=== PATIENT | female | born 1985 ===

== ENCOUNTER 2017-09-08 09:35 | Inpatient (IN) | payer SELFPAY ==
[2017-09-08 11:01] VITALS: BMI 27.6
[2017-09-08] MEDS ORDERED: Betamethasone Soluspan 30 mg/5mL Inj Susp IM ONE (11:14)
[2017-09-08] MEDS: Lactated Ringer's 1,000 ML IV SCH ×2 (11:15→22:23)
[2017-09-08 11:34] LABS: BASO % 0.4 % (0.0-2.0); EOS # 0.1 K/uL (0.0-0.7); EOS % 0.9 % (0.0-4.0); HEMOGLOBIN 14.1 g/dL (12.0-16.0); LYMPH % 20.6 % (20.0-40.0); MEAN CELL VOLUME 87.7 fl (81.0-99.0); MEAN CORPUSCULAR HEMOGLOBIN 29.5 pg (27.0-31.0); MEAN CORPUSCULAR HGB CONC 33.7 g/dL (33.0-37.0); MEAN PLATELET VOLUME 10.6 fl (7.2-11.7); MONO # 0.9 K/uL (0.0-0.8); MONO % 9.1 % (0.0-10.0); NEUT # 6.6 K/uL (1.8-7.0); NRBC % 0.1 % (0.0-0.0); RBC 4.77 Mil/uL (3.80-5.20); RED CELL DISTRIBUTION WIDTH 13.6 % (11.5-14.5); WHITE BLOOD COUNT 9.5 K/uL (4.8-10.8)
[2017-09-08] MEDS ORDERED: Magnesium Sulfate 4 gm/100 ml 4 GM/100 ML BAG IV ONE (12:37)
[2017-09-08] MEDS ORDERED: Magnesium Sul 40GM/1L SW 40 GM/1,000 ML ML IV ONE ×2 (12:37→13:11)
--- NOTE | 2017-09-08 12:53 | US ---
PROCEDURE: biophysical profile HISTORY: growth COMPARISON: None. TECHNIQUE: Ultrasound of the pelvis performed transabdominally FINDINGS: Single viable intrauterine gestation. Placenta posterior. Cephalic presentation. Cervix long and closed. heart rate 138 beats per minute. BPD: 8.3 centimeter compatible with estimated gestational age of 33 weeks, 3 days. HC: 29.8 centimeter compatible with estimated gestational age of 33 weeks, 0 days. HC: 28.0 centimeter compatible with estimated gestational age of 32 weeks, 0 days. FL: 6.5 centimeter compatible with estimated gestational age of 33 weeks, 2 days. Estimated gestational age (average ultrasound age): 33 weeks, 0 days. Estimated delivery date: 10/27/2017. weight: 4 pounds, 7 ounces (2013 grams) DONATO: 15.1 centimeter breathing movements: Score 2 movements: Score 2 tones: Score 2 Amniotic Fluid: Score 2 Total score: 8 IMPRESSION: Findings as above.
--- NOTE | 2017-09-08 17:26 | OBADHP ---
Datetime: 09/08/2017 15:21 Admit Comment, IP Provider: Patient is a @ 33.2 wks, presents with vaginal bleeding and cont ractions. Patient denies leaking, +FM, history of 34 week and 35 week vaginal delivery. Patient has b een receiving 17-OH progesterone weekly, otherwise no antepartum, no medical, no surgical issues VE=/-3 [id number] mod shun, +accels, no decels TOCO = ctxning q 3-5 mins A/P 1. Patient admitted for labor. IVF, CBC, type and screen 2. Patient given Betamethasone and started MgSO4 for tocolysis. Discussed case with Dr. Peralta 3. Patient rechecked and has unchanged exam. Growth U/S confirms vertex presentation and dates. 4. Will continue to watch closely Pelvic Type - PN: Adequate Extremities - PN: Normal Abdomen - PN: Normal Back - PN: Normal Breast - PN: Normal Lungs - PN: Normal Heart - PN: Normal Thyroid - PN: Normal Neurologic - PN: Normal HEENT - PN: Normal General - PN: Normal Presentation-Admit: Vertex FHR - Baseline A Provider: 125 Contraction Comments Provider: q 3-5 mins Vital Signs Provider: Reviewed; Within Normal Limits IP Chief Complaint: Uterine contractions NICHD Variability Prov Fetus A: Moderate 6-25bpm NICHD Accel Fetus A IP Provider: [id number] Dilatation, Provider: 1 Effacement, Provider: 50 Station, Provider: -3 Genitourinary Exam: Normal DTRs - PN: Normal EGA AdmitDate IP: 33.2 IP Adm Impression: , intrauterine IP Admit Plan: Admit to unit
[2017-09-09] MEDS: Lactated Ringer's 1,000 ML IV SCH (09:08)
[2017-09-09] MEDS ORDERED: Betamethasone Soluspan 30 mg/5mL Inj Susp IM ONE (11:00)
[2017-09-09 12:17] LABS: SQUAMOUS EPITHIAL 1 /hpf (0-5); URINE BILIRUBIN NEGATIVE (NEGATIVE); URINE BLOOD SMALL (NEGATIVE); URINE CLARITY CLEAR (Clear); URINE COLOR YELLOW (YELLOW); URINE GLUCOSE (UA) NEG (Normal); URINE LEUKOCYTE ESTERASE NEG Leu/uL (Negative); URINE NITRATE NEGATIVE (NEGATIVE); URINE PROTEIN NEGATIVE (NEGATIVE); URINE UROBILINOGEN 0.2-1.0 mg/dL (0.2-1.0)
--- NOTE | 2017-09-09 12:21 | OBPN ---
Datetime: 09/09/2017 11:30 IP Progress Plan: Continue present management FHR - Baseline A Provider: 130 IP Progress Note Comment: Pt seen and examined at bedside. Denies [place], cp, sob, epigastric pain, numb ness of extremities. Pt ambulating well, tolerating PO diet. Reflexes 2+; Mg levels: therapeutic -2nd beta injection on L gluteal -UA stat -Recommended patient increase water intake to 8 cups a day with less juice -Pt to follow up with pnc on Monday09/12/2017 -UA: clear; discharge home with PTL precautions case dw Dr. Jasper Mendez MD PGY1 OB attending addendum: Patient seen and examined by me with Dr. Mendez. 3 with the above assessment and plan. U/A neg P: Hydration with water reinforced to patient Follow-up this week in clinic as scheduled on Monday labor precautions and pelvic rest Vital Signs Provider: Reviewed; Within Normal Limits NICHD Accel Fetus A IP Provider: [id number] FHR Category Provider Fetus A: Category I NICHD Variability Prov Fetus A: Moderate 6-25bpm NICHD Decel Fetus A IP Provider: None Datetime: 09/08/2017 15:21 Contraction Comments Provider: q 3-5 mins Presentation-Admit: Vertex Dilatation, Provider: 1 Effacement, Provider: 50 Station, Provider: -3
--- NOTE | 2017-09-09 12:24 | OBPN ---
Datetime: 09/09/2017 07:00 IP Progress Note Comment: Pt seen and examined at bedside, resting comfortably. She denies SOB, PORRAS, epigastric pain, limitation of movement in extremities/digits. urine I_O wnl; vitals stable. Reflexe s in all extremities 2++ case dw Dr. Jasper Mendez MD PGY1
[2017-09-09 17:41] VITALS: BP 97/58; PULSE 90; RESP 18; TEMP 98.3; O2SAT 98
== END 2017-09-09 13:00 | disposition home or self-care (01) | DRG 778 ==
LOC: H.EROB2 09:35 → H.L&D 10:31 → H.EROB2 12:44 → H.L&D 12:45
PROVIDERS: ADMIT Obstetrics & Gynecology; ATTEND Obstetrics & Gynecology
PROC: 4A1HXCZ Monitoring of Products of Conception, Cardiac Rate, External Approach (ICD-10-PCS; principal; 2017-09-08)
DX: O60.03 Preterm labor without delivery, third trimester (principal); O46.93 Antepartum hemorrhage, unspecified, third trimester; Z3A.33 33 weeks gestation of pregnancy

== ENCOUNTER 2017-09-11 20:56 | Inpatient (IN) | payer MEDICAID ==
[2017-09-11] MEDS ORDERED: Lactated Ringer's 1,000 ML IV SCH ×2 (21:50→23:15)
[2017-09-11 23:02] VITALS: BMI 27.4
[2017-09-11] MEDS ORDERED: Penicillin G Potassium 5 MU in Sodium Chloride 0.9% 50 ML IVPB ONE (23:04)
[2017-09-11] MEDS ORDERED: Nalbuphine 20 mg/ml Inj (1 ml) IVP PRN (23:13)
[2017-09-11 23:20] LABS: BASO % 0.3 % (0.0-2.0); EOS # 0.1 K/uL (0.0-0.7); EOS % 0.4 % (0.0-4.0); HEMOGLOBIN 13.7 g/dL (12.0-16.0); LYMPH # 2.2 K/uL (1.0-4.3); LYMPH % 19.2 % (20.0-40.0); MEAN CELL VOLUME 87.6 fl (81.0-99.0); MEAN CORPUSCULAR HGB CONC 33.1 g/dL (33.0-37.0); MEAN PLATELET VOLUME 10.5 fl (7.2-11.7); MONO % 8.9 % (0.0-10.0); NEUT # 8.3 K/uL (1.8-7.0); NEUT % 71.2 % (50.0-75.0); NRBC % 0.1 % (0.0-0.0); RBC 4.72 Mil/uL (3.80-5.20); RED CELL DISTRIBUTION WIDTH 13.8 % (11.5-14.5); WHITE BLOOD COUNT 11.6 K/uL (4.8-10.8)
[2017-09-12] MEDS ORDERED: Lidocaine 1% Inj (20ml) ONE (00:51)
[2017-09-12] MEDS ORDERED: Benzocaine/Menthol SPRAY TOP PRN ×2 (00:58→02:56)
[2017-09-12] MEDS ORDERED: Oxycodone/Acetaminophen 5/325 mg Tab PO PRN ×2 (00:58→02:56)
[2017-09-12] MEDS ORDERED: Oxytocin 30 UNITS in Sodium Chloride 0.9% 500 ML IV ONE (01:00)
--- NOTE | 2017-09-12 01:21 | OBHP ---
Datetime: 09/11/2017 21:38 IP Adm Impression: , intrauterine IP Admit Plan: Admit to unit; Initiate labor protocol Admit Comment, IP Provider: Patient is a IUP 33.5 wks, presents with vaginal bleeding and pa inful contractions since this afternoon. Patient denies leaking, +FM, PObH of 34 week and 35 week vag inal delivery. Pt was seen last Monday with ctx and vb and receivied Mg bolus/infusion and [place]. Patient has been receivied [place] weekly, no , no medical, no surgical problems. VE: 1-2/50/-3 FHR:150/ mod shun, +accels, no decels TOCO = ctxning q 6-7 mins A/P: Patient IUP 33.5 wks, labor IV fluids. Observation. Reeval. Case discussed with Dr Cordova. Kyung PGY 1 Reeval 21:00 Patient ctxing e/3 min VE: /-2 Plan: Admit to unit Initiate PT labor protocol Penicilin IV Continue /maternal monitoring Monitor labor progress. Kyung PGY 1. Pt seen and examined with the resident and I agree with the above. Pelvic Type - PN: Adequate Extremities - PN: Normal Abdomen - PN: Normal Back - PN: Not Done Breast - PN: Not Done Lungs - PN: Normal Heart - PN: Normal Thyroid - PN: Normal Neurologic - PN: Normal HEENT - PN: Normal General - PN: Normal FHR - Baseline A Provider: 150 Membranes, Provider: Bulging Contraction Comments Provider: q 6-7 min EGA AdmitDate IP: 33.5 Vital Signs Provider: Reviewed; Within Normal Limits IP Chief Complaint: Uterine contractions; Vaginal bleeding NICHD Variability Prov Fetus A: Moderate 6-25bpm NICHD Accel Fetus A IP Provider: [id number] FHR Category Provider Fetus A: Category I NICHD Decel Fetus A IP Provider: None Dilatation, Provider: 1-2 Effacement, Provider: 50 Station, Provider: -3 Genitourinary Exam: Not Done DTRs - PN: Not Done Datetime: 09/08/2017 15:21 Presentation-Admit: Vertex
[2017-09-13 07:00] LABS: BASO # 0.1 K/uL (0.0-0.2); BASO % 0.7 % (0.0-2.0); EOS # 0.2 K/uL (0.0-0.7); EOS % 1.5 % (0.0-4.0); HEMOGLOBIN 13.4 g/dL (12.0-16.0); LYMPH # 3.4 K/uL (1.0-4.3); LYMPH % 28.2 % (20.0-40.0); MEAN CELL VOLUME 87.2 fl (81.0-99.0); MEAN CORPUSCULAR HEMOGLOBIN 28.9 pg (27.0-31.0); MEAN CORPUSCULAR HGB CONC 33.2 g/dL (33.0-37.0); MEAN PLATELET VOLUME 10.1 fl (7.2-11.7); MONO # 0.8 K/uL (0.0-0.8); MONO % 6.8 % (0.0-10.0); NEUT # 7.5 K/uL (1.8-7.0); NEUT % 62.8 % (50.0-75.0); NRBC % 0.2 % (0.0-0.0); RBC 4.65 Mil/uL (3.80-5.20); RED CELL DISTRIBUTION WIDTH 13.9 % (11.5-14.5); WHITE BLOOD COUNT 11.9 K/uL (4.8-10.8)
--- NOTE | 2017-09-13 11:11 | OBPPN ---
Datetime: 09/13/2017 06:18 PP Pain Prov: Within normal limits PP Nausea Prov: Denies PP Flatus Prov: Yes PP BM Prov: Yes PP Breasts Prov: Not Done PP Heart Prov: Normal PP Lungs Prov: Normal PP Abdomen/Uterus Prov: Normal PP Lochia Prov: Normal PP Vulva/Perineum Prov: Not Done PP CVA Tenderness Prov: Not Done PP Extremities Prov: Normal PP C/S Incision Prov: Not Applicable PP Progress Prov: Normal PP Impression Prov: Normal progression PP Plan Prov: Continue present management PP Progress Note Prov: S: 31 yo s/p NVD. Pt. is seen and examined at bedside this morning. N o overnight events. Pt reports mild abdominal pain, well controlled with pain meds. Pt is ambulating without any difficulties. Breast/bottle feeding baby. Tolerating PO diet. Lochia is similar to light menses in volume. Voiding freely, + BM and passing gas per rectum. Denies fever/chills, diarrhea, na usea/vomiting, chest pain, dyspnea, and dizziness. VS: stable Gen: NAD Cardio: + s1s2, no m/r/g Resp: clear breath sounds b/l Abdomen: BS+, NT, Uterus is firm and at the level of the umbilicus. Ext: No edema, calves nontender Neuro/Psych: AAOx3, preserved affect and mood. A/P: 31 yo s/p NVD. Pt remains afebrile, tolerating pain with medication, doing well on PP D 1. OOB with caution. SCDs for DVT prophylaxis, pt ambulating. Ibuprofen 600mg for pain. Colace 100mg PO BID for constipation Encourage . Encourage ambulation. PP CBC: pending Anticipated discharge: 09/14/17 YBecerra PGY 1 The patient was seen with the resident I agree with the notes IP PP Procedures: None Vital Signs Provider PP: Reviewed
[2017-09-14 20:22] VITALS: BP 107/62; PULSE 94; RESP 20; TEMP 98.8
== END 2017-09-14 15:50 | disposition home or self-care (01) | DRG 778 ==
LOC: H.EROB2 20:56 → H.L&D 23:06 → H.OB/GYN 09-12 02:30
PROVIDERS: ADMIT Obstetrics & Gynecology; ATTEND Obstetrics & Gynecology
PROC: 4A1HXCZ Monitoring of Products of Conception, Cardiac Rate, External Approach (ICD-10-PCS; 2017-09-11)
PROC: 10E0XZZ Delivery of Products of Conception, External Approach (ICD-10-PCS; principal; 2017-09-12)
DX: O60.03 Preterm labor without delivery, third trimester (principal); K59.00 Constipation, unspecified; Z37.0 Single live birth; Z3A.33 33 weeks gestation of pregnancy